=== PATIENT | female | born 1985 | race American Indian/Alaskan Native ===

== ENCOUNTER 2017-01-14 09:47 | Outpatient (CLI) | payer MEDICAID ==
--- NOTE | 2017-01-14 12:23 | Fluoroscopy Report ---
VOIDING CYSTOURETHROGRAM: INDICATION: Cystitis, frequent UTIs. COMPARISON: None similar. FINDINGS: VCUG performed. Representative Personal Service radiograph demonstrates nonobstructive bowel gas pattern. Unremarkable bones. Subsequently, approximately 300 cc of Cystografin introduced into the urinary bladder passively by gravity via a Robert catheter placed using standard sterile precautions and observed under intermittent fluoroscopy. Well distended urinary bladder demonstrates normal contours. Mild vesicoureteral reflux into the distal third of the right ureter noted at peak distention. Robert catheter subsequently removed with voiding images demonstrating patent urethra without suspicious filling defects. No postvoid residue. CONCLUSION: Mild right vesicoureteral reflux without significant postvoid residue, as described. Thank you for the opportunity to participate in this patient's care.
== END 2017-01-14 09:48 | disposition home or self-care (01) ==
LOC: FLUORO 09:47
PROVIDERS: ATTEND Urology
DX: N30.80 Other cystitis without hematuria (principal); N32.89 Other specified disorders of bladder
CPT/HCPCS: 51600; 74455; Q9958